=== PATIENT | male | born 1990 | race Caucasian/White ===

== ENCOUNTER 2016-11-03 11:25 | Emergency (ER) | payer MEDICAID ==
[~2016-11-03] VITALS: Ht 177.8 cm; Wt 95.0 kg
[2016-11-03 11:27] VITALS: BP 145/80
[2016-11-03] MEDS ORDERED: TOPI-60 PO (11:30)
[2016-11-03] MEDS ORDERED: ZIPR20CA2 PO (11:30)
[2016-11-03] MEDS ORDERED: BUPR300T52 PO (15:14)
[2016-11-03] MEDS ORDERED: BUSP30TA2 PO (15:14)
== END 2016-11-03 14:02 | disposition left against medical advice (07) ==
LOC: ER 11:33
DX: F41.9 Anxiety disorder, unspecified (principal); F20.9 Schizophrenia, unspecified; F32.9 Major depressive disorder, single episode, unspecified; F12.10 Cannabis abuse, uncomplicated; F15.10 Other stimulant abuse, uncomplicated; Z88.0 Allergy status to penicillin; Z88.8 Allergy status to other drugs, medicaments and biological substances; Z79.899 Other long term (current) drug therapy
CPT/HCPCS: 99281; 99283

== ENCOUNTER 2016-11-03 15:01 | Emergency (ER) | payer MEDICAID ==
[~2016-11-03] VITALS: Ht 182.9 cm; Wt 106.0 kg
[~2016-11-03 15:01] MED LIST: TOPI-60 PO; ZIPR20CA2 PO
[2016-11-03] MEDS ORDERED: BUPR300T52 PO (15:14)
[2016-11-03] MEDS ORDERED: BUSP30TA2 PO (15:14)
[2016-11-03] MEDS ORDERED: LORAZEPAM 1MG TABLET PO ONE (15:30)
[2016-11-03 15:54] LABS: BASOPHILS % 0.6 % (0.0-2.0); EOSINOPHILS % 1.6 % (0.0-5.0); HEMOGLOBIN. 15.7 g/dL (14.0-18.0); LYMPHOCYTES % 35.1 % (20.0-50.0); MEAN CORPUSCULAR HEMOGLOBIN 29.3 pg (28.0-32.0); MEAN CORPUSCULAR VOLUME 86.1 fL (80.0-94.0); MEAN PLATELET VOLUME 7.5 fl (7.4-10.4); MONOCYTES % 5.5 % (2.0-8.0); NEUTROPHILS % 57.2 % (40.0-76.0); PLATELET 251 x1000/uL (130-400); RED BLOOD CELL COUNT 5.34 mill/uL (4.7-6.1); RED CELL DISTRIBUTION WIDTH 14.4 % (11.6-14.6); WHITE BLOOD COUNT 8.3 x1000/uL (4.5-11.0)
[2016-11-03 15:56] LABS: CHLORIDE 101 mEq/L (98-107); INDEX HEMOLYSI 1 (1-3); INDEX ICTERIC 1 (1-4); INDEX LIPEMIC 1 (1-3)
[2016-11-03 16:05] LABS: ACETAMINOPHEN < 2 ug/mL (10-30); ANION GAP 13; CALCIUM 9.3 mg/dL (8.5-10.1); CARBON DIOXIDE 31 mEq/L (21-32); ETHANOL BLOOD < 10 mg/dL; UREA NITROGEN BLOOD 9 mg/dL (7-21); eGFR > 60 mL/min (>60)
[2016-11-03 16:47] LABS: *AMPHETAMINES SCREEN URINE NEGATIVE (NEGATIVE); *BARBITURATES SCREEN URINE NEGATIVE (NEGATIVE); *BENZODIAZEPINES SCREEN URINE PRESUMTIVE POSITIVE (NEGATIVE); *COCAINE SCREEN URINE NEGATIVE (NEGATIVE); CANNABINOID URINE SCREEN NEGATIVE (NEGATIVE); ECSTASY MDMA SCREEN URINE NEGATIVE (NEGATIVE); METHADONE URINE SCREEN NEGATIVE (NEGATIVE); OPIATES URINE SCREEN NEGATIVE (NEGATIVE); PHENCYCLIDINE URINE SCREEN NEGATIVE (NEGATIVE)
[2016-11-03] MEDS ORDERED: IBUPROFEN 600MG TABLET PO ONE (23:00)
[2016-11-04] MEDS ORDERED: ZIPRASIDONE MESYLATE 20MG/VIAL IM ONE ×2 (00:45→10:30)
[2016-11-04] MEDS ORDERED: LORAZEPAM 2MG/ML CPJ IM ONE (10:30)
[2016-11-04 11:29] VITALS: BP 117/62
== END 2016-11-04 11:43 | disposition home or self-care (01) ==
LOC: ER 15:44
DX: F20.9 Schizophrenia, unspecified (principal); R45.851 Suicidal ideations; F31.9 Bipolar disorder, unspecified; F17.210 Nicotine dependence, cigarettes, uncomplicated; F12.10 Cannabis abuse, uncomplicated; F15.10 Other stimulant abuse, uncomplicated; Z88.0 Allergy status to penicillin; Z88.8 Allergy status to other drugs, medicaments and biological substances; Z79.899 Other long term (current) drug therapy
CPT/HCPCS: 36415; 80048; 80305; 80329; 85025; 96372; 99284; G0482; J2060; J3486; 80307